=== PATIENT | female | born 1990 | race Caucasian/White ===

== ENCOUNTER 2019-04-25 09:32 | Outpatient (CLI) | payer BC ==
[~2019-04-25] VITALS: Ht 180.3 cm; Wt 57.3 kg
[~2019-04-25 09:32] MED LIST: SYNTHROID0.125 MG/T
--- NOTE | 2019-04-25 09:35 | NUR ---
Pt here with c/o lower back pain and cramping throughtout the night. 34.1 weeks gestation. States baby is active, denies any vaginal bleeding or leaking of fluid. Attempted to check cervix, unable to reach. Josefa RN SVE and 050/-2. Assessment complete.Pt with hx of thyroid CA, N/V and anxiety. FHR reactive at this time. Dr Gamboa called and updated. See physician notification.
[2019-04-25 09:47] VITALS: BP 117/75; PULSE 129; TEMP 98.8
[2019-04-25] MEDS ORDERED: BUSPAR5 MG PO (09:55)
[2019-04-25] MEDS ORDERED: PREDNISONE 5MG5 MG PO (09:55)
[2019-04-25] MEDS ORDERED: PROTONIX20 MG PO (09:56)
[2019-04-25] MEDS ORDERED: CALCITRIOL PO (09:56)
[2019-04-25] MEDS ORDERED: SYNTHROID0.112 MG/T PO (09:57)
[2019-04-25 10:10] VITALS: BP 101/69; PULSE 126
[2019-04-25 11:10] VITALS: BP 101/67; PULSE 114
--- NOTE | 2019-04-25 11:10 | NUR ---
KATE per Josefa MCKINNEY. No cervical change made. Contractions noted every 10-20 minutes with uterine irritability. 1115:Dr Gamboa called, no answer. 1120: Dr. Gamboa called and updated on patient. Notified of vital signs and uterine pattern. Orders received to start IV and give 1L LR and pt may eat at this time. 1130:IV started to left wrist x 1 attempt. LR bolus started. Pt sitting up eating applesauce and pudding.
--- NOTE | 2019-04-25 12:00 | NUR ---
Pt up to bathroom, voids 100ml. 1220:Dr Gamboa, evaluating monitor strip. Orders received to DC home. 1225:IV dc'd. Discharge instructions given, pt verbalizes understanding. No further questions. 1230:Pt to personal vehicle.
[2019-04-25 12:10] VITALS: BP 117/80; PULSE 122
== END 2019-04-25 12:30 | disposition home or self-care (01) ==
LOC: LDRO 09:32 → LDR 09:40 → LDRO 12:30
DX: O26.893 Other specified pregnancy related conditions, third trimester (principal); R25.2 Cramp and spasm; M54.9 Dorsalgia, unspecified; Z3A.34 34 weeks gestation of pregnancy
CPT/HCPCS: OP; J7120

== ENCOUNTER 2019-05-06 10:54 | Outpatient (CLI) | payer BC ==
[~2019-05-06] VITALS: Ht 180.3 cm; Wt 57.3 kg
[~2019-05-06 10:54] MED LIST changes: +BUSPAR5 MG PO; +CALCITRIOL PO; +PREDNISONE 5MG5 MG PO; +PROTONIX20 MG PO; +SYNTHROID0.112 MG/T PO
[2019-05-06 11:13] VITALS: BP 107/73; PULSE 115; TEMP 98.2
--- NOTE | 2019-05-06 11:20 | NUR ---
G1 at 35.5 weeks gestation to LDR4 with mother. She c/o "back pain that has been constant for a few weeks" and "pain under her breast that has been constant for a month". Patient changed into gown, wedged left. EFMs explained and applied. FHR 120 bpm and reactive. Irritable ctx pattern per toco, patient denies feeling ctx at this time but states that she has had some "abdominal tightening throughout the day". VSS. SVE closed and very posterior. Plan of care reviewed.
--- NOTE | 2019-05-06 11:45 | NUR ---
Patient states that she has not eaten since 1800 last night, she states she doesn't "feel hungry or have an appetite". Encouraged patient to try frequent small snacks throughout the day. Snacks offered, and water and pudding accepted and provided. Patient tolerates both without n/v.
[2019-05-06 12:20] VITALS: BP 105/69; PULSE 109
--- NOTE | 2019-05-06 12:40 | NUR ---
Dr. Flores on unit, updated on patient's status. Dr. Flores reviews tracing, orders to discharge home recieved. Discharge instructions reviewed with patient. Patient discharged home at 1250.
== END 2019-05-06 12:50 | disposition home or self-care (01) ==
LOC: LDRO 10:54
DX: O99.89 Other specified diseases and conditions complicating pregnancy, childbirth and the puerperium (principal); M54.9 Dorsalgia, unspecified; Z3A.35 35 weeks gestation of pregnancy

== ENCOUNTER 2019-05-29 10:53 | Inpatient (IN) | payer BC ==
[~2019-05-29] VITALS: Ht 177.8 cm; Wt 58.2 kg
[2019-05-29] VITALS (10 sets, daily range): BP systolic 101–126; BP diastolic 64–82; PULSE 90–125; TEMP 98.3–98.5
--- NOTE | 2019-05-29 18:50 | NUR ---
Pt arrives to unit ambulatory for scheduled induction of labor. G1 at 39 weeks. Pt changed into clean gown, oriented to room, call light within reach, bed in low and locked position. EFM and toco explained and applied. Pt reports good movement, denies LOF, denies vaginal bleeding, and denies contractions. Pt denies headaches, blurry vision, or RUQ pain. Mild edema to lower extremeties. Plan of care reviewed with patient. Admission assessment started.
--- NOTE | 2019-05-29 19:30 | NUR ---
18 gauge IV started in left forearm. Admission labs obtained off of IV start. Lactated ringers infusing to gravity. Consents reviewed and signed with patient and spouse, all questions answered.
[2019-05-29 19:44] LABS: BASO % 0.2 % (0.0-2.0); EOS % 0.4 % (0-4.0); GRAN # 4.1 (1.4-6.5); HEMOGLOBIN 11.3 g/dl (12.5-16.0); LYMPH # 0.8 (1.2-3.4); LYMPH % 14.5 % (20.0-51.0); MEAN CELL VOLUME 93 fl (80.0-100.0); MEAN CORPUSCULAR HEMOGLOBIN 29 pg (27.0-31.0); MEAN CORPUSCULAR HGB CONC 32 g/dl (33.0-37.0); MEAN PLATELET VOLUME 10.4 fl (7.4-10.4); MONO # 0.4 (0.1-0.6); MONO % 7.3 % (1.7-9.3); PLATELET COUNT 181 K/mm3 (130-400); RED BLOOD COUNT 3.87 M/mm3 (4.10-5.30); REDCELL DISTRIBUTION WIDTH-CV 15.4 % (11.5-14.5)
[2019-05-29 19:46] LABS: HEMATOCRIT 35.9 % (37.0-47.0)
[2019-05-29 19:53] LABS: ALBUMIN 3.4 gm/dL (3.5-5.0); BILIRUBIN,TOTAL 0.7 mg/dL (0.0-1.0); CALCIUM 8.5 mg/dL (8.4-10.2); CREATININE, serum 0.46 (0.52-1.25); POTASSIUM 4.3 mmol/L (3.4-5.0); TOTAL PROTEIN 6.5 gm/dL (6.4-8.2)
--- NOTE | 2019-05-29 20:03 | NUR ---
SVE 0-1/90/-1, membranes intact. 50 mcg cytotec placed in posterior fornix of vagina. Pt tolerated procedure well. Pt educated on importance on staying in a semi flat, left wedge position for 1 hour for optimal absorption of medication.
[2019-05-29] MEDS ORDERED: PRENATAL MVI (20:53)
[2019-05-30] VITALS (68 sets, daily range): BP systolic 101–142; BP diastolic 59–95; PULSE 75–116; TEMP 97.2–98.8
--- NOTE | 2019-05-30 09:51 | NUR ---
Late deceleration noted. Dr. Gamboa on unit. Reviews strip. LR bolus infusing. Pitocin off. Pt repositioned RL. FHR returns to 130 baseline with moderate variability. 0955-Pitocin infusing at 6mU.
--- NOTE | 2019-05-30 10:40 | NUR ---
Pt requesting epidural. LR bolus infusing. Pt sitting upright. Difficulty placing epidural sitting upright. Pt repositioned RL for epidural placement. 1054-Single shot administered by Gabriel Graff CRNA. No adverse effects noted. See anesthesia record. 1100-Pt repositioned WL. Updated on POC. Safety reviewed. Bed locked in low position. Call light within reach. No questions or concerns at this time.
--- NOTE | 2019-05-30 12:05 | NUR ---
Minimal variability noted. Pt repositioned LL with side stirrups. LR bolus infusing. O2 applied via simple mask at 10L. SVE per this RN /-2. FHR responds to SS with accelerations.
--- NOTE | 2019-05-30 19:00 | NUR ---
Dr. Gamboa at bedside. SVE per provider C/+1. Pt prepped for delivery. Provider and this RN begin pushing with patient. 1934-Orders per Dr. Gamboa to increase pitocin to 32mU. 2005- of viable female infant attended by Dr. Gamboa. Cord clamped x 2 and cut from umbilicus. Cord blood drawn for outside labs. Infant dried and placed on mother's abdomen. Apgars 8/9/9. Care of infant to Medardo Marie RN. 2009- of placenta. Pitocin bolus infusing per protocol. Fundus firm at umbilicus. Bleeding WNL. Second degree laceration repair performed by Dr. Gamboa. Pericare performed. Ice pack applied. Pt updated on POC. Safety reviewed. Bed locked in low position. Call light within reach. 2039-Uterine atony noted. Dr. Flores notified. Orders for Methergine 0.2mg IM.
--- NOTE | 2019-05-30 20:40 | NUR ---
CARE OF PT ASSUMED. PT RESTING IN BED. DENIES PAIN. FUNDUS NOT PALPATED WITH EXAM MASSAGED FOR 5 MINUTES AND SLOWING FIRMS. BLEEDING WITH SLOW TRICKLE DURING EXAM. DR. BECKER NOTIFIED. IV PITOCIN CONTINUES TO INFUSE AT 333ML/HR VIA PUMP. FAMILY AT BEDSIDE AND SUPPORTIVE.
--- NOTE | 2019-05-30 20:55 | NUR ---
2043 IM METHERGINE PROVIDED ORDERED TO LEFT THIGH. PT REQUEST PUDDING TO EAT. PROVIDED. PERINIUM VERY SWOLLEN. FRESH ICE PACK APPLIED.
--- NOTE | 2019-05-30 21:10 | NUR ---
PT WITH N/V. ZOFRAN 4 MG PROVIDED. UTERUS FIRM AT BEGINNING OF EXAM NOT REQUIRING HEAVY MASSAGE TO MAKE FIRM. BLEEDING DECREASED FROM EARLIER EXAM.
--- NOTE | 2019-05-30 21:41 | NUR ---
PT UNABLE TO LIFT RIGHT LEG OFF BED. LIGHTS DIMMED AND PT ENCOURAGE TO REST. IV TO INT.
--- NOTE | 2019-05-30 23:10 | NUR ---
PT REMAINS UNABLE TO LIFT RIGHT LEG OFF BED.
[2019-05-31 00:45] VITALS: BP 129/88; PULSE 85
--- NOTE | 2019-05-31 00:45 | NUR ---
0045 EPID CATH DCD. UP TO BR WITH ASSIST X2 AND W/C. VOIDED 300CC. PERICARE DONE. TO 207 PER W/C AND APOLINAR WELL.
[2019-05-31 04:00] VITALS: BP 104/68; PULSE 72; TEMP 97.8
[2019-05-31 07:32] VITALS: BP 108/66; PULSE 70; TEMP 97.4
[2019-05-31 09:25] LABS: HEMATOCRIT 38.7 % (37.0-47.0); HEMOGLOBIN 12.2 g/dl (12.5-16.0); MEAN CELL VOLUME 93 fl (80.0-100.0); MEAN CORPUSCULAR HEMOGLOBIN 29 pg (27.0-31.0); MEAN CORPUSCULAR HGB CONC 32 g/dl (33.0-37.0); MEAN PLATELET VOLUME 10.3 fl (7.4-10.4); RED BLOOD COUNT 4.15 M/mm3 (4.10-5.30); REDCELL DISTRIBUTION WIDTH-CV 15.2 % (11.5-14.5)
[2019-05-31 09:29] LABS: ALANINE AMINOTRANSFERASE < 6 U/L (9-52); ALBUMIN 3.2 gm/dL (3.5-5.0); ALKALINE PHOSPHATASE 186 U/L (50-136); ANION GAP 13 mmol/L (7-16); AST,SGOT 35 U/L (15-37); BILIRUBIN,TOTAL 0.9 mg/dL (0.0-1.0); BLOOD UREA NITROGEN 9 mg/dL (7-17); CALCIUM 8.7 mg/dL (8.4-10.2); CARBON DIOXIDE 19 mmol/L (22-30); CHLORIDE 105 mmol/L (98-107); CREATININE, serum 0.59 (0.52-1.25); GLUCOSE 178 mg/dL (74-106); POTASSIUM 4.2 mmol/L (3.4-5.0); SODIUM 136 mmol/L (137-145); TOTAL PROTEIN 6.3 gm/dL (6.4-8.2)
[2019-05-31 09:33] LABS: PLATELET COUNT 290 K/mm3 (130-400)
[2019-05-31 15:50] VITALS: BP 104/64; PULSE 68; TEMP 98.1
[2019-05-31 19:30] VITALS: BP 119/67; PULSE 107; TEMP 98.7
[2019-06-01 06:43] LABS: ALBUMIN 2.5 gm/dL (3.5-5.0); BILIRUBIN,TOTAL 0.2 mg/dL (0.0-1.0); CREATININE, serum 0.57 (0.52-1.25); POTASSIUM 3.7 mmol/L (3.4-5.0)
[2019-06-01 08:10] VITALS: BP 122/88; PULSE 95; TEMP 98.3
[2019-06-01] MEDS ORDERED: PERCOCET 325 MG1 TA2 PO (12:27)
[2019-06-01] MEDS ORDERED: IBU800 M1 PO (12:27)
--- NOTE | 2019-06-01 13:55 | NUR ---
Patient given discharge instructions. Denies questions. Leaves ambulatory with spouse and .
== END 2019-06-01 13:55 | disposition home or self-care (01) | DRG 806 ==
LOC: LDR 10:53 → OB 05-31 00:45
PROVIDERS: Obstetrics & Gynecology; ADMIT Student in an Organized Health Care Education/Training Program
PROC: 0KQM0ZZ Repair Perineum Muscle, Open Approach (ICD-10-PCS; principal; 2019-05-30)
PROC: 3E033VJ Introduction of Other Hormone into Peripheral Vein, Percutaneous Approach (ICD-10-PCS; principal; 2019-05-30)
PROC: 3E0P7VZ Introduction of Hormone into Female Reproductive, Via Natural or Artificial Opening (ICD-10-PCS; principal; 2019-05-30)
PROC: 10E0XZZ Delivery of Products of Conception, External Approach (ICD-10-PCS; principal; 2019-05-30)
PROC: 10907ZC Drainage of Amniotic Fluid, Therapeutic from Products of Conception, Via Natural or Artificial Opening (ICD-10-PCS; principal; 2019-05-30)
DX: O26.893 Other specified pregnancy related conditions, third trimester (principal); E89.6 Postprocedural adrenocortical (-medullary) hypofunction; Z37.0 Single live birth; O70.1 Second degree perineal laceration during delivery; Z3A.39 39 weeks gestation of pregnancy; E31.23 Multiple endocrine neoplasia [MEN] type IIB; E89.0 Postprocedural hypothyroidism; F41.9 Anxiety disorder, unspecified; D64.9 Anemia, unspecified; Z85.850 Personal history of malignant neoplasm of thyroid; Z85.858 Personal history of malignant neoplasm of other endocrine glands
CPT/HCPCS: J1720; J2210; J2405; J2590; J2795; J7030; J7120

== ENCOUNTER 2021-06-24 07:37 | Outpatient (RCR) | payer BC ==
[~2021-06-24] VITALS: Ht 177.8 cm; Wt 49.8 kg
[~2021-06-24 07:37] MED LIST changes: +IBU800 M1 PO; +PERCOCET 325 MG1 TA2 PO; +PRENATAL MVI; -SYNTHROID0.125 MG/T
[2021-06-24] MEDS ORDERED: FLORINEF ACETA0.1 MG PO (08:18)
[2021-06-24 08:19] VITALS: BP 106/70; PULSE 96; TEMP 98.5
== END 2021-06-24 10:00 ==
LOC: EUO 07:37
DX: O21.0 Mild hyperemesis gravidarum (principal); Z3A.00 Weeks of gestation of pregnancy not specified
CPT/HCPCS: C1751

== ENCOUNTER 2021-08-07 16:32 | Emergency (ER) | payer BC ==
[~2021-08-07] VITALS: Ht 180.3 cm; Wt 51.4 kg
[~2021-08-07 16:32] MED LIST changes: +FLORINEF ACETA0.1 MG PO
[2021-08-07 17:16] VITALS: BP 99/76; PULSE 113; TEMP 98.6
[2021-08-07] MEDS ORDERED: TRULANCE3 MG PO (17:16)
[2021-08-07 18:48] LABS: COLLECTION METHOD CLEAN CATCH
[2021-08-07 18:59] LABS: MUCOUS Present /lpf; PH 5 (5-8); URINE APPEARANCE Cloudy; URINE BACTERIA Rare /hpf; URINE BILIRUBIN Negative (NEGATIVE); URINE BLOOD Negative (NEGATIVE); URINE COLOR Yellow; URINE GLUCOSE Negative (NEGATIVE); URINE KETONE 1+ (NEGATIVE); URINE LEUKOCYTE ESTERASE 3+ (NEGATIVE); URINE NITRATE Positive (NEGATIVE); URINE PROTEIN(semi-quant) Negative (NEGATIVE)
[2021-08-07] MEDS ORDERED: OMNICEF 300MG300 MG PO (19:41)
== END 2021-08-07 20:10 | disposition home or self-care (01) ==
LOC: COL.ER 16:32
PROVIDERS: Emergency Medicine
DX: O23.42 Unspecified infection of urinary tract in pregnancy, second trimester (principal); Z3A.15 15 weeks gestation of pregnancy; Z85.850 Personal history of malignant neoplasm of thyroid
CPT/HCPCS: J0696

== ENCOUNTER 2021-11-23 23:17 | Outpatient (CLI) | payer BC ==
[~2021-11-23] VITALS: Ht 180.3 cm; Wt 52.7 kg
--- NOTE | 2021-11-23 | NUR ---
2330 G2L1 at 30.3 weeks gestation to LDR3 with c/o SROM at home at 2200. Patient reports good movement. EFMs applied. FHR category 1. VS obtained. Amniotrace to vagina turns dark blue and large amount of clear fluid noted. SVE closed/thick/high. Plan of care reviewed with patient.
[~2021-11-23 23:17] MED LIST changes: +OMNICEF 300MG300 MG PO; +TRULANCE3 MG PO
[2021-11-23 23:45] VITALS: BP 121/89; PULSE 121
--- NOTE | 2021-11-24 00:05 | NUR ---
Dr. Momin at bedside, large amount of clear amniotic fluid continues to leak. Plan of care discussed with patient and family including transport to [facility]. Patient states understanding.
[2021-11-24 00:15] VITALS: BP 105/57; PULSE 111
[2021-11-24 00:45] VITALS: BP 106/59; PULSE 108
[2021-11-24 01:15] VITALS: BP 101/65; PULSE 106
--- NOTE | 2021-11-24 01:22 | NUR ---
0105 EMS at bedside, report given, patient assisted to cart for transport to [facility]. Patient off unit at 0122. Report called to [facility].
== END 2021-11-24 01:22 | disposition short-term general hospital (02) ==
LOC: LDRO 23:17 → LDR 23:44 → LDRO 11-24 01:22
DX: O42.913 Preterm premature rupture of membranes, unspecified as to length of time between rupture and onset of labor, third trimester (principal); Z3A.30 30 weeks gestation of pregnancy
CPT/HCPCS: OP; J0290; J0456; J0702; J7050; J7120